=== PATIENT | male | born 2000 | race Caucasian/White ===

== ENCOUNTER 2020-02-29 22:13 | Emergency (ER) | payer OTHER ==
[~2020-02-29] VITALS: Ht 193 cm; Wt 124.7 kg
--- NOTE | 2020-02-29 22:38 | PHYS DOC ---
Past History Past Medical History: No Pertinent History Past Surgical History: No Surgical History Smoking: Non-smoker Alcohol Use: None Drug Use: None General Adult EDM: Chief Complaint: LACERATION/AVULSION HPI: HPI: Patient is a 19-year-old male who presents for evaluation of multiple injuries after a skateboard crash. Patient [place] when he was skating and fell going approximately 15 mph. He was not wearing a helmet and lost his footing. There is multiple cuts to both sides of his head. Patient states that he tumbled and rolled several times. There was no reported loss of consciousness or any nausea and vomiting. Other obvious areas of injury included his right knee and left shoulder. There was some small abrasions to his right hand. Tetanus shot is up-to-date. Patient was able to walk into the ER. C-collar was placed shortly after arrival. Review of Systems: Review of Systems: Constitutional: Denies fever or chills Eyes: Denies change in visual acuity HENT: Denies nasal congestion or sore throat Respiratory: Denies cough, has mild shortness of breath Cardiovascular: Denies chest pain or edema GI: Denies abdominal pain, nausea, vomiting, bloody stools or diarrhea : Denies dysuria Musculoskeletal: Denies back pain has pain to left shoulder and right knee Integument: Denies rash Neurologic: has headache,but no focal weakness or sensory changes Endocrine: Denies polyuria or polydipsia Lymphatic: Denies swollen glands Psychiatric: Denies depression or anxiety Heart Score: Risk Factors: Risk Factors: DM, Current or recent (<one month) smoker, HTN, HLP, family history of CAD, obesity. Risk Scores: Score 0 - 3: 2.5% MACE over next 6 weeks - Discharge Home Score 4 - 6: 20.3% MACE over next 6 weeks - Admit for Clinical Observation Score 7 - 10: 72.7% MACE over next 6 weeks - Early Invasive Strategies Physical Exam: PE: Constitutional: Well developed, well nourished, mild distress, non-toxic appearance. [] HENT: Normocephalic, large abrasions and cuts to both sides of his head, bilateral external ears normal, oropharynx moist, no oral exudates, nose normal, no hemotympanum [] Eyes: PERRL, EOMI, conjunctiva normal, no discharge. [] Neck: Normal range of motion, no tenderness, supple, no stridor. [] Cardiovascular:Heart rate regular rhythm, no murmur [] Lungs & Thorax: Bilateral breath sounds clear to auscultation [] Abdomen: Bowel sounds normal, soft, no tenderness, no masses, no pulsatile masses. [] Skin: Warm, dry, no erythema, no rash, multiple cuts both side of his head, abrasions to right hand, abrasions to right knee [] Back: No tenderness, no CVA tenderness. [] Extremities: Right knee tenderness, no cyanosis, no clubbing, ROM intact, mild right knee edema. [Abrasions left elbow and right hand] Neurologic: Alert and oriented X 3, normal motor function, normal sensory function, no focal deficits noted. [] Psychologic: Affect normal, judgement normal, mood normal. [] EKG: EKG: [] Radiology/Procedures: Radiology/Procedures: Chest x-ray read by me showed no acute findings, no pneumonia or pneumothorax Left shoulder x-ray showed no fracture or dislocation Right knee showed no fracture or dislocation [] [place] [address] IMAGING REPORT Signed PATIENT: KHALIF VELASCO BACCOUNT: [id number] : 2000 LOCATION: ER AGE: 19 SEX: M EXAM STATUS: REG ER ORD. PHYSICIAN: HEIDI DOWNS DO REASON: Injury from fall, short of air, chest pain PROCEDURE: CHEST AP ONLY CHEST AP ONLY INDICATION: Reason: Injury from fall, short of air, chest pain / Spl. Instructions: / History: . COMPARISON STUDY: None. FINDINGS: Lungs: Normal lung volume. No pulmonary mass or consolidation. The tracheobronchial tree and hilar structures are normal. Pleura: No pleural effusion or pneumothorax. Heart and Mediastinum: The cardiomediastinal silhouette is normal. The great vessels of the thorax are normal. Bones and Soft Tissues: The bones and soft tissues are within normal limits. IMPRESSION: No acute cardiopulmonary process. Electronically signed by: Danni Covarrubias MD (02/29/2020 11:36 PM) [facility] DICTATED AND SIGNED BY: DANNI COVARRUBIAS MD DATE: 02/29/202335 CC: PCP,NO; HEIDI DOWNS DO ~ [address] [address] IMAGING REPORT Signed PATIENT: KHALIF VELASCO BACCOUNT: [id number] : 2000 LOCATION: ER AGE: 19 SEX: M EXAM STATUS: REG ER ORD. PHYSICIAN: HEIDI DOWNS DO REASON: Fall off skateboard, right knee pain PROCEDURE: KNEE RIGHT 3V Study: CR KNEE RIGHT 3V Indication: Fall. Knee pain. Comparison: None. Findings: No acute fracture. Alignment is maintained. No large knee joint effusion. Normal femorotibial joint space height. Impression: No acute osseous abnormality. Electronically signed by: TEENA RUTH MD (02/29/2020 11:37 PM) [id number] DICTATED AND SIGNED BY: TEENA RUTH MD DATE: 02/29/202336 CC: PCP,NO; HEIDI DOWNS DO ~ [address] [address] IMAGING REPORT Signed PATIENT: KHALIF VELASCO BACCOUNT: [id number] : 2000 LOCATION: ER AGE: 19 SEX: M EXAM STATUS: REG ER ORD. PHYSICIAN: HEIDI DOWNS DO REASON: Fall off skateboard, left shoulder pain PROCEDURE: SHOULDER 2+V LEFT SHOULDER 2+V LEFT DATE: 02/29/2020 10:32 PM INDICATION: Reason: Fall off skateboard, left shoulder pain / Spl. Instructions: / History: COMPARISON: None. FINDINGS: Bones: There is no evidence of acute fracture or dislocation. Joints: The joint spaces are normal. The acromiohumeral distance is not narrowed. Miscellaneous: No abnormal soft tissue calcifications in the shoulder. IMPRESSION: No evidence of acute fracture. Electronically signed by: Danni Covarrubias MD (02/29/2020 11:37 PM) [facility] DICTATED AND SIGNED BY: DANNI COVARRUBIAS MD DATE: 02/29/20 2337 CC: PCP,NO; HEIDI DOWNS DO ~ Impressions: [address] [address] IMAGING REPORT Signed PATIENT: KHALIF VELASCO BACCOUNT: [id number] : 2000 LOCATION: ER AGE: 19 SEX: M EXAM STATUS: REG ER ORD. PHYSICIAN: HEIDI DOWNS DO REASON: Skateboard fall with injury, facial lacerations and abrasions, pa PROCEDURE: CT MAXILLOFACIAL WO CONTRAST CT HEAD AND CERVICAL SPINE WO, CT MAXILLOFACIAL WO CONTRAST Date: 02/29/2020 10:29 PM Clinical Indication: Reason: Fall off skateboard, injury, headache, neck pain, abrasions / Spl. Instructions: / History: Comparison: None. Technique: 5 mm axial tomographic images were obtained of the head without contrast. These were viewed on brain and bone windows. Axial helical images of the face were obtained without contrast. Axial and coronal reconstruction was performed. CT imaging of the cervical spine was performed without contrast. Coronal and sagittal reformatted images were performed. One or more of the following dose reduction techniques were utilized: Automated exposure control (AEC), Adjustment of mA and/or kV according to patient size, Use of iterative reconstruction technique such as ASiR, CT scan done according to ALARA and image gently/image wisely CT HEAD FINDINGS: The brain parenchyma is normal in attenuation. No intra- or extra-axial mass or fluid collection. No acute hemorrhage. The ventricles are normal in size, shape, and morphology. The alva-white matter junction is normal. The basilar cisterns are patent. The mastoid air cells are clear. No aggressive osseous lesion or fracture. CT FACE FINDINGS: Age indeterminate fracture along the anterior tooth socket of the maxillary right central incisor, with slight angulation of the tooth. The paranasal sinuses are clear. The orbits are normal. The globes are intact. The nasal septum is deviated to the right. CT CERVICAL SPINE FINDINGS: The cervical spine is normally aligned. No acute fracture. No aggressive lytic or blastic osseous lesion. The intervertebral disc heights are maintained. No high-grade spinal canal stenosis or neural foraminal narrowing. The thyroid gland is normal. No cervical lymphadenopathy. The visualized aerodigestive tract is unremarkable. The visualized lung apices are clear. Impression: 1. Age indeterminate fracture along the anterior tooth socket of the maxillary right central incisor, with slight angulation of the tooth. Correlate for focal tenderness. 2. No acute intracranial process. 3. No acute osseous abnormality of the cervical spine. Electronically signed by: Danni Covarrubias MD (02/29/2020 11:18 PM) [facility] DICTATED AND SIGNED BY: DANNI COVARRUBIAS MD DATE: 02/29/20 8732 CC: PCP,ELVIRA; HEIDI DOWNS DO ~ Course & Med Decision Making: Course & Med Decision Making Pertinent Labs and Imaging studies reviewed. (See chart for details) [] Dragon Disclaimer: Dragon Disclaimer: This electronic medical record was generated, in whole or in part, using a voice recognition dictation system. 0010 stable, patient reassessed multiple times. Wounds were cleaned and there was no cuts that needed suturing. There is a large left alevism area abrasion and there were road rash type injuries on his left elbow, right hand and right knee. Left shoulder is tender but nearly full range of motion noted. There is no fracture or dislocation. X-rays are all stable as well. And the only noted fracture was the right maxilla around his frontal tooth. C-collar has been cleared. There is no signs of skull fracture or brain bleed. Patient lucid awake and appropriate with no focal deficits or lateralizing signs. Patient will be given prescription for Keflex as well as Naprosyn. Close head and i nstructions and wound care instructions given. Patient aware he will need to see his dentist regarding his tooth fracture Departure Departure: Impression: Primary Impression: Head contusion Qualified Codes: S00.03XA - Contusion of scalp, initial encounter Additional Impressions: Scalp abrasion Qualified Codes: S00.01XA - Abrasion of scalp, initial encounter Tooth fracture Qualified Codes: S02.5XXA - Fracture of tooth (traumatic), initial encounter for closed fracture Contusion of left shoulder Qualified Codes: S40.012A - Contusion of left shoulder, initial encounter Contusion of right knee Qualified Codes: S80.01XA - Contusion of right knee, initial encounter Contusion of left elbow Qualified Codes: S50.02XA - Contusion of left elbow, initial encounter Contusion of right hand Qualified Codes: S60.221A - Contusion of right hand, initial encounter Disposition: 01 HOME/RESIDENCE PRIOR TO ADM Condition: STABLE Referrals: PCP,NO (PCP) Patient Instructions: Head Injury, Adult, Knee Pain, Shoulder Pain, Wound Care, [id number] Additional Instructions: Rest, ice and elevate the injured areas, see your dentist regarding her tooth fracture, follow head injury instructions. You have a particular large abrasion left side head be sure to apply triple antibiotic daily and take the antibiotics as directed. Have your doctor recheck wounds in the next 2 to 3 days. Always wear helmet when skateboarding Scripts Naproxen (NAPROSYN) 500 Mg Tablet 1 TAB PO BID for pain for 10 Days, #20 TAB 0 Refills Prov: HEIDI DOWNS DO 03/01/20 Cephalexin (KEFLEX) 250 Mg Capsule 1 CAP PO QID for skin wound for 7 Days, #28 CAP 0 Refills Prov: HEIDI DOWNS DO 03/01/20 Justification of Admission: Justification of Admission: Justification of Admission Dx: N/A HEIDI DOWNS DO Feb 29, 2020 22:37
--- NOTE | 2020-02-29 23:21 | RAD ---
CT HEAD AND CERVICAL SPINE WO, CT MAXILLOFACIAL WO CONTRAST Date: 02/29/2020 10:29 PM Clinical Indication: Reason: Fall off skateboard, injury, headache, neck pain, abrasions / Spl. Instructions: / History: Comparison: None. Technique: 5 mm axial tomographic images were obtained of the head without contrast. These were viewed on brain and bone windows. Axial helical images of the face were obtained without contrast. Axial and coronal reconstruction was performed. CT imaging of the cervical spine was performed without contrast. Coronal and sagittal reformatted images were performed. One or more of the following dose reduction techniques were utilized: Automated exposure control (AEC), Adjustment of mA and/or kV according to patient size, Use of iterative reconstruction technique such as ASiR, CT scan done according to ALARA and image gently/image wisely CT HEAD FINDINGS: The brain parenchyma is normal in attenuation. No intra- or extra-axial mass or fluid collection. No acute hemorrhage. The ventricles are normal in size, shape, and morphology. The alva-white matter junction is normal. The basilar cisterns are patent. The mastoid air cells are clear. No aggressive osseous lesion or fracture. CT FACE FINDINGS: Age indeterminate fracture along the anterior tooth socket of the maxillary right central incisor, with slight angulation of the tooth. The paranasal sinuses are clear. The orbits are normal. The globes are intact. The nasal septum is deviated to the right. CT CERVICAL SPINE FINDINGS: The cervical spine is normally aligned. No acute fracture. No aggressive lytic or blastic osseous lesion. The intervertebral disc heights are maintained. No high-grade spinal canal stenosis or neural foraminal narrowing. The thyroid gland is normal. No cervical lymphadenopathy. The visualized aerodigestive tract is unremarkable. The visualized lung apices are clear. Impression: 1. Age indeterminate fracture along the anterior tooth socket of the maxillary right central incisor, with slight angulation of the tooth. Correlate for focal tenderness. 2. No acute intracranial process. 3. No acute osseous abnormality of the cervical spine. Electronically signed by: Johnathon Covarrubias MD (02/29/2020 11:18 PM) [facility]
--- NOTE | 2020-02-29 23:39 | RAD ---
SHOULDER 2+V LEFT DATE: 02/29/2020 10:32 PM INDICATION: Reason: Fall off skateboard, left shoulder pain / Spl. Instructions: / History: COMPARISON: None. FINDINGS: Bones: There is no evidence of acute fracture or dislocation. Joints: The joint spaces are normal. The acromiohumeral distance is not narrowed. Miscellaneous: No abnormal soft tissue calcifications in the shoulder. IMPRESSION: No evidence of acute fracture. Electronically signed by: Johnathon Covarrubias MD (02/29/2020 11:37 PM) [facility]
--- NOTE | 2020-02-29 23:39 | RAD ---
CHEST AP ONLY INDICATION: Reason: Injury from fall, short of air, chest pain / Spl. Instructions: / History: . COMPARISON STUDY: None. FINDINGS: Lungs: Normal lung volume. No pulmonary mass or consolidation. The tracheobronchial tree and hilar structures are normal. Pleura: No pleural effusion or pneumothorax. Heart and Mediastinum: The cardiomediastinal silhouette is normal. The great vessels of the thorax are normal. Bones and Soft Tissues: The bones and soft tissues are within normal limits. IMPRESSION: No acute cardiopulmonary process. Electronically signed by: Johnathon Covarrubias MD (02/29/2020 11:36 PM) [facility]
--- NOTE | 2020-02-29 23:40 | RAD ---
Study: CR KNEE RIGHT 3V Indication: Fall. Knee pain. Comparison: None. Findings: No acute fracture. Alignment is maintained. No large knee joint effusion. Normal femorotibial joint space height. Impression: No acute osseous abnormality. Electronically signed by: TEENA RUTH MD (02/29/2020 11:37 PM) [id number]
[2020-03-01] VITALS: BP 13/79
[2020-03-01] MEDS ORDERED: traMADol 50 MG TABLET PO ONE (00:15)
[2020-03-01] MEDS ORDERED: CEPH-263 PO (00:22)
[2020-03-01] MEDS ORDERED: NAPR-683 PO (00:22)
[2020-03-01] MEDS ORDERED: BACITRACIN ZINC TOPICAL OINT PACKET. TP ONE (00:30)
== END 2020-03-01 00:35 | disposition home or self-care (01) ==
LOC: ER 22:13
DX: S02.5XXA Fracture of tooth (traumatic), initial encounter for closed fracture (principal); S00.03XA Contusion of scalp, initial encounter; S80.01XA Contusion of right knee, initial encounter; S50.02XA Contusion of left elbow, initial encounter; S60.221A Contusion of right hand, initial encounter; S40.012A Contusion of left shoulder, initial encounter; V00.138A Other skateboard accident, initial encounter; Y93.51 Activity, roller skating (inline) and skateboarding; Y92.89 Other specified places as the place of occurrence of the external cause; Y99.8 Other external cause status
CPT/HCPCS: 70450; 70486; 71045; 72125; 73030; 73562; 99285